=== PATIENT | male | born 1990 | race Two or more races ===

== ENCOUNTER 2024-05-11 16:29 | Emergency (ER) | payer OTHER ==
[~2024-05-11] VITALS: Ht 185.4 cm; Wt 115.6 kg
[2024-05-11 18:55] VITALS: BP 118/86; PULSE 76; RESP 16; TEMP 98; O2SAT 94
[2024-05-11] MEDS ORDERED: IBUP-1455 PO (21:52)
[2024-05-11] MEDS: HYDROcodone-ACET 5/325MG TAB PO ONE (22:38)
== END 2024-05-11 22:53 | disposition home or self-care (01) ==
LOC: ER 16:29
DX: S52.001A Unspecified fracture of upper end of right ulna, initial encounter for closed fracture (principal); M25.421 Effusion, right elbow; W18.09XA Striking against other object with subsequent fall, initial encounter; Y93.89 Activity, other specified; Y92.69 Other specified industrial and construction area as the place of occurrence of the external cause; Y99.8 Other external cause status
CPT/HCPCS: 29105; 73200